=== PATIENT | female | born 2000 | race Asian ===

== ENCOUNTER 2021-02-10 19:04 | Emergency (ER) | payer OTHER ==
[~2021-02-10] VITALS: Ht 147.3 cm; Wt 65.4 kg
[2021-02-10 19:04] VITALS: BP 110/63
[2021-02-10] MEDS ORDERED: PRED20TA PO (19:43)
--- NOTE | 2021-02-10 19:43 | PHYS DOC ---
Past History Past Medical History: No Pertinent History (JEANIE PATHAK APRN) Past Surgical History: Tonsillectomy (JEANIE PATHAK APRN) Smoking: Non-smoker Alcohol Use: Occasionally Drug Use: None (JEANIE PATHAK APRN) General Adult EDM: Chief Complaint: SKIN RASH/ABSCESS HPI: HPI: Patient is a 20-year-old female that presents today with a rash on her upper back and side area. Patient states she was seen last week at the [facility] at [facility] for a rash and was given some topical steroid cream and was sent home. She said over the last couple days she has noticed a rash on her upper back shoulder area also on her legs has developed, she states she bought a new perfume at [facility] and is wondering if this could be the cause of this. She states that the topical steroid has not helped at all. Patient denies shortness of breath or inability to swallow (JEANIE PATHAK APRN) Review of Systems: Review of Systems: Constitutional: Denies fever or chills Eyes: Denies change in visual acuity HENT: Denies nasal congestion or sore throat Respiratory: Denies cough or shortness of breath Cardiovascular: Denies chest pain or edema GI: Denies abdominal pain, nausea, vomiting, bloody stools or diarrhea : Denies dysuria Musculoskeletal: Denies back pain or joint pain Integument: rash Neurologic: Denies headache, focal weakness or sensory changes Endocrine: Denies polyuria or polydipsia Lymphatic: Denies swollen glands Psychiatric: Denies depression or anxiety (JEANIE PATHAK APRN) Allergies: Allergies: Allergies Coded Allergies Type Severity Reaction Last Updated Verified No Known Drug Allergies 02/10/21 No (JEANIE PATHAK APRN) Physical Exam: PE: Constitutional: Well developed, well nourished, no acute distress, non-toxic appearance. [] HENT: Normocephalic, atraumatic, bilateral external ears normal, oropharynx moist, no oral exudates, nose normal. [] Eyes: PERRLA, EOMI, conjunctiva normal, no discharge. [] Neck: Normal range of motion, no tenderness, supple, no stridor. [] Cardiovascular:Heart rate regular rhythm, no murmur [] Lungs & Thorax: Bilateral breath sounds clear to auscultation [] Abdomen: Bowel sounds normal, soft, no tenderness, no masses, no pulsatile masses. [] Skin: Hives noted on the upper back and upper thigh area itchy in nature. [] Back: No tenderness, no CVA tenderness. [] Extremities: No tenderness, no cyanosis, no clubbing, ROM intact, no edema. [] Neurologic: Alert and oriented X 3, normal motor function, normal sensory function, no focal deficits noted. [] Psychologic: Affect normal, judgement normal, mood normal. [] (JEANIE PATHAK APRN) Current Patient Data: Vital Signs: Vital Signs Date Time Temp Pulse Resp B/P (MAP) Pulse Ox O2 Delivery O2 Flow Rate FiO2 02/10/21 19:04 98.1 97 20 110/63 (79) 98 Room Air (JEANIE PATHAK APRN) EKG: EKG: [] (JEANIE PATHAK APRN) Radiology/Procedures: Radiology/Procedures: [] (JEANIE PATHAK APRN) Heart Score: C/O Chest Pain: N/A (JEANIE PATHAK APRN) Course & Med Decision Making: Course & Med Decision Making Pertinent Labs and Imaging studies reviewed. (See chart for details) Instructed patient to stop using the perfume that she bought, use fragrance free dye free products over the next couple days wash her clothes that have had contact with a perfume in hot water. Take warm tepid showers to help with itching, take oral prednisone for the next 5 days and is okay to use the topical hydrocortisone cream also for itching. Patient is to follow-up with her primary care physician at the end of week if rash is no better. (JEANIE PATHAK APRN) Dragon Disclaimer: Dragon Disclaimer: This electronic medical record was generated, in whole or in part, using a voice recognition dictation system. (JEANIE PATHAK APRN) Departure Departure: Impression: Primary Impression: Contact dermatitis Qualified Codes: L23.2 - Allergic contact dermatitis due to cosmetics Disposition: HOME / SELF CARE / HOMELESS Condition: STABLE Referrals: JUSTYN LEÓN DO (PCP) Patient Instructions: Contact Dermatitis Additional Instructions: Avoid perfume Flush close that have had contact with the perfume in hot water preferably dye free fragrance free soap Recommend using only dye free fragrance free products over the next 5 to 7 days Prednisone take will take as directed daily for the next 5 days Follow-up with your primary care physician at the end of the week if rash is no better Scripts Prednisone (PREDNISONE) 20 Mg Tablet 3 TAB PO DAILY for allergies for 5 Days, #15 TAB Prov: JEANIE PATHAK APRN 02/10/21 Attending Signature Attending Signature I have reviewed the PA/TRANSPORTATION CONSULTANT's note and plan of care. I was available for consultation as needed during the patient's visit in the emergency department. I agree with the clinical impression, plan, and disposition. (SULEMA ZAMBRANO DO) JEANIE PATHAK APRN Feb 10, 2021 19:43 SULEMA ZAMBRANO DO Feb 11, 2021 00:11
== END 2021-02-10 19:52 | disposition home or self-care (01) ==
LOC: ER 19:04
DX: L23.2 Allergic contact dermatitis due to cosmetics (principal)
CPT/HCPCS: 99283